=== PATIENT | female | born 1990 | race Two or more races ===

== ENCOUNTER 2025-07-08 14:14 | Emergency (ER) | payer MEDICAID, OTHER ==
[~2025-07-08] VITALS: Ht 154.9 cm; Wt 99.7 kg
[2025-07-08 17:39] LABS: Chloride 105 mmol/L (98-107); Potassium 3.6 mmol/L (3.5-5.1); Sodium 141 mmol/L (136-145)
--- NOTE | 2025-07-08 17:39 | ED.PDOC ---
B[employer]ER HPI Comments 35 y.o female presents to the ED for a chief complaint of vaginal bleeding associated with light abdominal cramping that started today. Patient reports positive test x 1 week ago with [facility] on 05/26/25. She reports light bleeding today. She denies any blood clots, nausea, vomiting, back pain, fever, chills, dysuria. 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 No medical history reported. 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/CHECK AIRMAN History 6 Para 5 AB 0 LMP 05/26/25 Family History Family History: Reviewed,noncontributory to illness Social History Smoker: Non-Smoker Alcohol: Denies ETOH Use Drugs: Denies Drug Use Lives In: Home Constitutional: denies: chills, diaphoresis, fatigue, fever, malaise, sweats, weakness, others EENTM: denies: blurred vision, double vision, ear bleeding, ear discharge, ear drainage, ear pain, ear ringing, eye pain, eye redness, hearing loss, mouth pain, mouth swelling, nasal discharge, nose bleeding, nose congestion, nose pain, photophobia, tearing, throat pain, throat swelling, voice changes, others Respiratory: denies: cough, hemoptysis, orthopnea, SOB at rest, shortness of breath, SOB with excertion, stridor, wheezing, others Cardiovascular: denies: chest pain, dizzy spells, diaphoresis, Dyspnea on exertion, edema, irregular heart beat, left arm pain, lightheadedness, palpitations, PND, syncope, others Gastrointestinal: denies: abdomen distended, abdominal pain, blood streaked bowels, constipated, diarrhea, dysphagia, difficulty swallowing, hematemesis, melena, nausea, poor appetite, poor fluid intake, rectal bleeding, rectal pain, vomiting, others Genitourinary: reports: abnormal vagina bleeding, pain, ; denies: burning, dyspareunia, dysuria, flank pain, frequency, hematuria, incontinence, vagina discharge, urgency, others Neurological: denies: dizziness, fainting, headache, left sided numbness, left sided weakness, numbness, paresthesia, pre-existing deficit, right sided numbness, right sided weakness, seizure, speech problems, tingling, tremors, weakness, others Musculoskeletal: denies: back pain, gout, joint pain, joint swelling, muscle pain, muscle stiffness, neck pain, others Integumetry: denies: bruises, change in color, change in hair/nails, dryness, laceration, lesions, lumps, rash, wounds, others Allergic/Immunocompromised: denies: Difficulty Healing, Frequent Infections, Hives, Itching, others Hematologic/Lymphatic: denies: anemia, blood clots, easy bleeding, easy bruising, swollen glands, others Endocrine: denies: excessive hunger, excessive sweating, excessive thirst, excessive urination, flushing, intolerance to cold, intolerance to heat, unexplained weight gain, unexplained weight loss, others Psychiatric: denies: anxiety, bipolar disorder, depression, hopeless, panic disorder, schizophrenia, sleepless, suicidal, others All Other Systems: Reviewed and Negative Physical Exam General Appearance: No Apparent Distress, Normal HEENT: Normal ENT Inspection, Pharynx Normal, TMs Normal Neck: Full Range of Motion, Non-Tender, Normal, Normal Inspection Respiratory: Chest Non-Tender, Lungs Clear, No Accessory Muscle Use, No Re spiratory Distress, Normal Breath Sounds Cardiovascular: No Edema, No JVD, No Murmur, No Gallop, Normal Peripheral Pulses, Regular Rate/Rhythm Breast Exam: Deferred Gastrointestinal: No Organomegaly, Non Tender, No Pulsatile Mass, Normal Bowel Sounds, Soft Genitalia: Deferred Pelvic: Deferred Rectal: Deferred Extremities: No calf tenderness, Normal capillary refill, Normal inspection, Normal range of motion, Non-tender, No pedal edema Musculoskeletal : Apperance: Normal Neurologic: Alert, tie in hand II-XII nml as Tested, No Motor Deficits, Normal Affect, Normal Mood, No Sensory Deficits Cerebellar Function: Normal Reflexes: Normal Skin: Dry, Normal Color, Warm Lymphatic: No Adenopathy Was a procedure done? Was a procedure done?: No Differential Diagnosis (CAPTAIN/CHECK AIRMAN) Vaginal Bleeding: - Complete, - Incomplete, - Inevitable, - Missed, - Threatened, Abruptio Placentae, Blood Loss Anemia, Cervicitis, Ectopic , Hormonal X-Ray, Labs, Meds, VS Vital Signs Date Time Temp Pulse Resp B/P (MAP) Pulse Ox O2 Delivery O2 Flow Rate FiO2 07/08/25 14:36 97.4 90 18 121/80 96 97.4 Lab Test 07/08/25 17:07 Range/Units White Blood Count Pending Red Blood Count Pending Hemoglobin Pending Hematocrit Pending Mean Corpuscular Volume Pending Mean Corpuscular Hemoglobin Pending Mean Corpuscular Hemoglobin Concent Pending Red Cell Distribution Width Pending Platelet Count Pending Mean Platelet Volume Pending Neutrophils (%) (Auto) Pending Lymphocytes (%) (Auto) Pending Monocytes (%) (Auto) Pending Basophils (%) (Auto) Pending Neutrophils # (Auto) Pending Lymphocytes # (Auto) Pending Monocytes # (Auto) Pending Sodium Level Pending Potassium Level Pending Chloride Level Pending Carbon Dioxide Level Pending Anion Gap Pending Blood Urea Nitrogen Pending Creatinine Pending Glomerular Filtration Rate Calc Pending BUN/Creatinine Ratio Pending Serum Glucose Pending Calcium Level Pending Beta HCG, Quantitative Pending 35-year-old female presents here with vaginal bleeding. She is . States she has a mild abdominal cramping this morning and began to have light bleeding. She states she took a positive test last week. Last menstrual period was in May. At this time I have ordered a CBC BMP beta quantitative, Rh screen and ultrasound to rule out ectopic . All labs and ultrasound are still pending. At this time I have transferred patient care to Dr. Hernandez at 6:00 p.m.. Time of 1ST Reevaluation: 17:36 Reevaluation 1ST: Unchanged Patient Education/Counseling: Diagnosis, Treatment, Prognosis Family Education/Counseling: No Family Present Departure 1 Departure Time of Disposition: 18:00 Impression: Primary Impression: Threatened Disposition: 30 STILL A PATIENT Condition: Fair Critical Care Note Critical Care Time?: No Stability Stability form required: No I personally scribed for EZRA DOSHI MD ([email or web address]) on 07/08/25 at 17:39. Electronically submitted by Andria Franco ([facility]). EZRA DOSHI MD Jul 08, 2025 17:39
[2025-07-08 17:40] LABS: Anion Gap 8 (5-15); Carbon Dioxide 28 mmol/L (20-31); Nucleated Red Blood Cells % 0.1 %
[2025-07-08 17:41] LABS: Calcium 9.3 mg/dL (8.7-10.4)
[2025-07-08 17:44] LABS: Hematocrit 35.9 % (36.0-46.0); Hemoglobin 11.7 g/dL (12.2-16.2); Mean Corpuscular Hemoglobin 23.5 pg (28.0-32.0); Mean Corpuscular Volume 72.1 fL (80.0-100.0)
[2025-07-08 17:46] LABS: BUN/Creatinine Ratio 15.9 (10.0-20.0); Blood Urea Nitrogen 14 mg/dL (9-23); Glucose 96 mg/dL (74-106)
[2025-07-08 18:43] LABS: Urine Protein, UAD 1+ (Negative)
--- NOTE | 2025-07-08 19:21 | DVH ---
INDICATION: Rule out ectopic TECHNIQUE: Multiple real-time grayscale transabdominal sonographic images along with color and duplex Doppler of the uterus and ovaries were obtained. COMPARISON: None FINDINGS: The uterus measures 10.7 x 5.5 x 5.5 cm. The endometrial stripe measures 23.1 mm. The right ovary measures 2.7 x 1.9 x 2.2 cm. Right ovarian volume is 5.9 mL The left ovary measures 3.4 x 1.9 x 2.6 cm. Left ovarian volume measures 8.6 mL Subsequent color and duplex Doppler interrogation of the ovaries demonstrated symmetric vascular flow to both ovaries, though this does not exclude the possibility of torsion due to the dual blood supply. IMPRESSION: 1. Grossly unremarkable pelvic ultrasound. 2. Subcentimeter cystic area in the cervix likely nabothian cyst. 3. Ovaries appear normal 4. Endometrium is thickened and avascular.
[2025-07-08 20:47] VITALS: BP 135/85; PULSE 72; RESP 14; TEMP 99; O2SAT 100
[2025-07-08] MEDS ORDERED: CEPH500C PO (21:30)
== END 2025-07-08 22:35 | disposition home or self-care (01) ==
LOC: ER 14:14
DX: O20.0 Threatened abortion (principal); Z79.899 Other long term (current) drug therapy; Z3A.00 Weeks of gestation of pregnancy not specified
CPT/HCPCS: 36415; 76801; 76817; 80048; 81001; 81025; 84702; 85025; 86850; 86900; 86901